=== PATIENT | female | born 1955 | race Caucasian/White ===

== ENCOUNTER 2021-12-15 07:17 | Inpatient (IN) | payer MEDICARE ==
[~2021-12-15] VITALS: Ht 165.1 cm; Wt 81.6 kg
[2021-12-15] VITALS (12 sets, daily range): BP systolic 67–112; BP diastolic 35–57
[~2021-12-15 07:17] MED LIST: HYDROmorphone 2 MG/ML INJ. IVP PRN; IV RINGERS,LACTATED 1000ML 1,000 ML IV SCH; PROCHLORPERAZINE 10 MG/2 ML VIAL. IVP PRN; fentaNYL PF VIAL 100 MCG/2 ML VIAL IVP PRN
[2021-12-15] MEDS ORDERED: cefOXitin SODIUM IV Push 1 GM VIAL. IVP PRN (07:30)
[2021-12-15] MEDS ORDERED: IBUP200T58 PO (07:49)
[2021-12-15] MEDS ORDERED: PANT40TA77 PO (07:49)
[2021-12-15] MEDS ORDERED: TAMO20TA PO (07:49)
[2021-12-15] MEDS ORDERED: cefOXitin SODIUM IV Push 2 GM VIAL. IVP ONE (08:00)
[2021-12-15] MEDS ORDERED: ePHEDrine PF IN SALINE 50 MG/10 ML SYRINGE. IV ONE (08:35)
[2021-12-15] MEDS ORDERED: DEXAMETHASONE SOD PHOS 4 MG/ML VIAL ONE (08:36)
[2021-12-15] MEDS ORDERED: PROPOFOL 10 MG/ML (20ML) VIAL. IV ONE (08:36)
[2021-12-15] MEDS ORDERED: SUCCINYLCHOLINE 200 MG/10 ML VIAL. ONE (08:36)
[2021-12-15] MEDS ORDERED: ONDANSETRON PF 4 MG/2 ML VIAL. ONE (08:36)
[2021-12-15] MEDS ORDERED: LIDOCAINE 2% PF 5 ML VIAL. ONE (08:36)
[2021-12-15] MEDS ORDERED: ROCURONIUM 50 MG/5 ML VIAL. ONE (08:37)
[2021-12-15] MEDS ORDERED: fentaNYL PF VIAL 100 MCG/2 ML VIAL ONE ×2 (08:38→11:32)
[2021-12-15] MEDS ORDERED: PHENYLEPHRINE in 0.9% NACL PF 1 MG/10 ML SYRINGE. IV ONE (08:39)
--- NOTE | 2021-12-15 09:39 | PDOC ---
SURGICAL PROGRESS NOTE DATE: 12/15/21 TIME: 09:37 Subjective Pre-Op Note 66 yo F with hx of diverticulitis, s/p resection and ileostomy She is currently doing well and denies c/o BE with intact anastomosis TO OR for ileostomy takedown. R/R/B/A d/w pt and pt's supportive family. Risks, including, but not limited to: bleeding, infection, damage to surrounding structures, risk of anesthesia, risk of anastomotic leak. They appear to understand, their questions are answered and they elect to proceed. Vital Signs Vital Signs Date Time Temp Pulse Resp B/P (MAP) Pulse Ox O2 Delivery O2 Flow Rate FiO2 12/15/21 07:52 97.9 73 20 111/53 98 Room Air 97.9 Justicifation of Admission Dx: Justifications for Admission: Justification of Admission Dx: Yes Chronic Renal Failure: Intravenous Infusions VIRGINIA BINGHAM MD Dec 15, 2021 09:39
[2021-12-15] MEDS ORDERED: BUPIVACAINE-EPI 0.5% 30 ML VIAL KIT. ONE (09:57)
[2021-12-15] MEDS ORDERED: BUPIVACAINE-EPI 0.5% 30 ML VIAL KIT. INJ ONE (09:58)
[2021-12-15] MEDS ORDERED: HYDROmorphone 2 MG/ML INJ. ONE (09:59)
[2021-12-15] MEDS ORDERED: SUGAMMADEX SODIUM 200 MG/2 ML VIAL. IVP ONE (10:30)
[2021-12-15] MEDS ORDERED: MORPHINE SULFATE 2 MG/ML INJ. ONE ×2 (11:33→12:01)
[2021-12-15] MEDS: fentaNYL PF VIAL 100 MCG/2 ML VIAL IVP PRN ×2 (11:36→11:51)
[2021-12-15] MEDS: MORPHINE SULFATE 2 MG/ML INJ. IVP PRN ×4 (11:37→12:16)
[2021-12-15] MEDS ORDERED: NALOXONE 0.4 MG/ML VIAL. IV PRN (12:30)
[2021-12-15] MEDS ORDERED: ONDANSETRON PF 4 MG/2 ML VIAL. IVP PRN (12:30)
[2021-12-15] MEDS: IV NORMAL SALINE 1000ML BAG 1,000 ML IV SCH (12:30)
[2021-12-15] MEDS ORDERED: HYDROmorphone 12mg/30ml PCA 30 ML IV PRN (12:30)
[2021-12-15] MEDS ORDERED: 0.9 % SODIUM CHLORIDE 10 ML DISP.SYRIN. IV PRN (12:30)
--- NOTE | 2021-12-15 12:30 | PDOC4 ---
OPERATIVE NOTE Date: Date: Dec 15, 2021 Pre-Op Diagnosis: Perforated diverticulitis Post-Op Diagnosis: same Procedure Performed: ileostomy takedown Surgeon: Rui Bingham Anesthesia Type: GETA plus local Blood Loss: 50 Specimans Obtained: none Findings: normal ostomy Complications: none Operative Note: After obtaining informed consent, patient was taken to OR, induced under GETA and prepped in the usual fashion. Ileostomy identified in RLQ and mucocutaneous junction divided with cautery. Subcutaneous tissues divided sharply. Ileostomy freed up to and below the level of fascia and fascia clear intraperitoneally for several centimeters. Terminal ileum viable and intact. Serosal tear, inherent to procedure, was repaired with 3 0 vicryl. Sided to side stapled anastomosis created with SARAY 75 and sealed with TA 60. Anastomosis reinforced with 3 0 vicryl. Anastomosis noted to be patent, under no tension and completely viable, without leakage. Bowel returned to abdominal cavity. Copious irrigation. No evidence of bleeding or other pathology. Peritoneum repaired with 0 vicryl. Anterior fascia repaired with 0 looped PDS. Skin repaired with 3 0 vicryl and 4 0 monocryl in pursestring fashion. Dressing placed. Patient tolerated procedure well and sent to PACU in stable condition. All counts correct. Wound class is 4. VIRGINIA BINGHAM MD Dec 15, 2021 12:30
[2021-12-15] MEDS: IV RINGERS,LACTATED 1000ML 1,000 ML IV SCH ×2 (12:55→21:10)
--- NOTE | 2021-12-15 14:27 | NUR ---
arrived from pacu. she is awake and sister at bedside. she has a claims investigator and reinstructed on use. dressing to abdomen is clean and dry. returned to bed. requested coke and given a diet lemon nikolski. ambulated to the bathroom; she voided
[2021-12-16 03:00] VITALS: BP 115/39
[2021-12-16 04:34] LABS: BASO % 0 % (0-3); EOS % 0 % (0-3); HEMATOCRIT 28.5 % (36.0-47.0); HEMOGLOBIN 9.5 g/dL (12.0-15.5); LYMPH # 1.1 x10^3/uL (1.0-4.8); LYMPH % 12 % (24-48); MEAN CORPUSCULAR HEMOGLOBIN 31 pg (25-35); MEAN CORPUSCULAR HGB CONC 33 g/dL (31-37); MEAN CORPUSCULAR VOLUME 92 fL (79-100); MONO # 0.7 x10^3/uL (0.0-1.1); MONO % 7 % (0-9); NEUT # 7.6 x10^3/uL (1.8-7.7); NEUT % 80 % (31-73); PLATELET COUNT 195 x10^3/uL (140-400); RED BLOOD COUNT 3.11 x10^6/uL (3.50-5.40); RED CELL DISTRIBUTION WIDTH 15.4 % (11.5-14.5); WHITE BLOOD COUNT 9.4 x10^3/uL (4.0-11.0)
[2021-12-16 04:47] LABS: CALCIUM 7.8 mg/dL (8.5-10.1); CREATININE 0.9 mg/dL (0.6-1.0); GFR 62.5
[2021-12-16] MEDS ORDERED: ENOXAPARIN 40 MG/0.4 ML SYRINGE. SQ SCH (06:00)
[2021-12-16 07:00] VITALS: BP 103/40
[2021-12-16] MEDS: IV RINGERS,LACTATED 1000ML 1,000 ML IV SCH ×2 (08:30→18:30)
[2021-12-16] MEDS: ENOXAPARIN 40 MG/0.4 ML SYRINGE. SQ SCH (08:41)
--- NOTE | 2021-12-16 09:12 | PDOC ---
SURGICAL PROGRESS NOTE DATE: 12/16/21 TIME: 09:11 Subjective pretty sore today no flatus no nausea Vital Signs Vital Signs Date Time Temp Pulse Resp B/P (MAP) Pulse Ox O2 Delivery O2 Flow Rate FiO2 12/16/21 07:52 Nasal Cannula 2.0 12/16/21 07:30 15 99 12/16/21 07:00 97.5 70 103/40 (61) 97.5 I&O Intake and Output 12/16/21 07:00 Intake Total 1400 ml Output Total 728 ml Balance 672 ml Intake Oral 300 ml IV Total 1100 ml Output Urine Total 678 ml Estimated Blood Loss 50 ml # Voids 1 General: Alert, Cooperative Abdomen: Soft, Other (dressing dry) Labs Laboratory Tests Test 12/16/21 03:20 White Blood Count 9.4 x10^3/uL (4.0-11.0) Red Blood Count 3.11 x10^6/uL (3.50-5.40) Hemoglobin 9.5 g/dL (12.0-15.5) Hematocrit 28.5 % (36.0-47.0) Mean Corpuscular Volume 92 fL (79-100) Mean Corpuscular Hemoglobin 31 pg (25-35) Mean Corpuscular Hemoglobin Concent 33 g/dL (31-37) Red Cell Distribution Width 15.4 % (11.5-14.5) Platelet Count 195 x10^3/uL (140-400) Neutrophils (%) (Auto) 80 % (31-73) Lymphocytes (%) (Auto) 12 % (24-48) Monocytes (%) (Auto) 7 % (0-9) Eosinophils (%) (Auto) 0 % (0-3) Basophils (%) (Auto) 0 % (0-3) Neutrophils # (Auto) 7.6 x10^3/uL (1.8-7.7) Lymphocytes # (Auto) 1.1 x10^3/uL (1.0-4.8) Monocytes # (Auto) 0.7 x10^3/uL (0.0-1.1) Eosinophils # (Auto) 0.0 x10^3/uL (0.0-0.7) Basophils # (Auto) 0.0 x10^3/uL (0.0-0.2) Sodium Level 139 mmol/L (136-145) Potassium Level 4.0 mmol/L (3.5-5.1) Chloride Level 107 mmol/L (98-107) Carbon Dioxide Level 26 mmol/L (21-32) Anion Gap 6 (6-14) Blood Urea Nitrogen 12 mg/dL (7-20) Creatinine 0.9 mg/dL (0.6-1.0) Estimated GFR (Cockcroft-Gault) 62.5 Glucose Level 108 mg/dL (70-99) Calcium Level 7.8 mg/dL (8.5-10.1) Laboratory Tests Test 12/16/21 03:20 White Blood Count 9.4 x10^3/uL (4.0-11.0) Red Blood Count 3.11 x10^6/uL (3.50-5.40) Hemoglobin 9.5 g/dL (12.0-15.5) Hematocrit 28.5 % (36.0-47.0) Mean Corpuscular Volume 92 fL (79-100) Mean Corpuscular Hemoglobin 31 pg (25-35) Mean Corpuscular Hemoglobin Concent 33 g/dL (31-37) Red Cell Distribution Width 15.4 % (11.5-14.5) Platelet Count 195 x10^3/uL (140-400) Neutrophils (%) (Auto) 80 % (31-73) Lymphocytes (%) (Auto) 12 % (24-48) Monocytes (%) (Auto) 7 % (0-9) Eosinophils (%) (Auto) 0 % (0-3) Basophils (%) (Auto) 0 % (0-3) Neutrophils # (Auto) 7.6 x10^3/uL (1.8-7.7) Lymphocytes # (Auto) 1.1 x10^3/uL (1.0-4.8) Monocytes # (Auto) 0.7 x10^3/uL (0.0-1.1) Eosinophils # (Auto) 0.0 x10^3/uL (0.0-0.7) Basophils # (Auto) 0.0 x10^3/uL (0.0-0.2) Sodium Level 139 mmol/L (136-145) Potassium Level 4.0 mmol/L (3.5-5.1) Chloride Level 107 mmol/L (98-107) Carbon Dioxide Level 26 mmol/L (21-32) Anion Gap 6 (6-14) Blood Urea Nitrogen 12 mg/dL (7-20) Creatinine 0.9 mg/dL (0.6-1.0) Estimated GFR (Cockcroft-Gault) 62.5 Glucose Level 108 mg/dL (70-99) Calcium Level 7.8 mg/dL (8.5-10.1) Assessment/Plan s/p ileostomy takedown , await bowel function Justicifation of Admission Dx: Justifications for Admission: Justification of Admission Dx: Yes Chronic Renal Failure: Intravenous Infusions DANIEL MAYA APRN Dec 16, 2021 09:12
--- NOTE | 2021-12-16 10:46 | NUR ---
SW following. 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 Surgery following - pt had surgery on 12/15/21. No bowel sounds as of yet. SW will continue to follow.
[2021-12-16 11:00] VITALS: BP 106/36
[2021-12-16] MEDS: IV NORMAL SALINE 1000ML BAG 1,000 ML IV SCH (12:30)
[2021-12-16 15:00] VITALS: BP 110/48
--- NOTE | 2021-12-16 15:00 | NUR ---
states that she passed flatus and wants something else to eat. "They said I could have something else if i passed gas" will call and get diet advanced. states she is feeling better. sister gone. manager primary care continues.
[2021-12-16 19:15] VITALS: BP 114/46
[2021-12-16 22:54] VITALS: BP 115/46
[2021-12-17 03:02] VITALS: BP 113/53
[2021-12-17] MEDS: IV RINGERS,LACTATED 1000ML 1,000 ML IV SCH (04:30)
[2021-12-17 07:00] VITALS: BP 113/50
[2021-12-17] MEDS: IV NORMAL SALINE 1000ML BAG 1,000 ML IV SCH (07:32)
[2021-12-17] MEDS: ENOXAPARIN 40 MG/0.4 ML SYRINGE. SQ SCH (08:50)
--- NOTE | 2021-12-17 08:53 | PDOC ---
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 Vital Signs Vital Signs Date Time Temp Pulse Resp B/P (MAP) Pulse Ox O2 Delivery O2 Flow Rate FiO2 12/17/21 08:00 Room Air 12/17/21 07:00 98.5 80 16 113/50 (71) 92 98.5 12/16/21 20:00 2.0 I&O Intake and Output 12/17/21 07:00 Intake Total 240 ml Output Total 1250 ml Balance -1010 ml Intake Oral 240 ml Output Urine Total 1250 ml # Voids 1 General: Alert, Oriented X3 Abdomen: Soft, Other (dressing dry) Labs Laboratory Tests Test 12/16/21 03:20 White Blood Count 9.4 x10^3/uL (4.0-11.0) Red Blood Count 3.11 x10^6/uL (3.50-5.40) Hemoglobin 9.5 g/dL (12.0-15.5) Hematocrit 28.5 % (36.0-47.0) Mean Corpuscular Volume 92 fL (79-100) Mean Corpuscular Hemoglobin 31 pg (25-35) Mean Corpuscular Hemoglobin Concent 33 g/dL (31-37) Red Cell Distribution Width 15.4 % (11.5-14.5) Platelet Count 195 x10^3/uL (140-400) Neutrophils (%) (Auto) 80 % (31-73) Lymphocytes (%) (Auto) 12 % (24-48) Monocytes (%) (Auto) 7 % (0-9) Eosinophils (%) (Auto) 0 % (0-3) Basophils (%) (Auto) 0 % (0-3) Neutrophils # (Auto) 7.6 x10^3/uL (1.8-7.7) Lymphocytes # (Auto) 1.1 x10^3/uL (1.0-4.8) Monocytes # (Auto) 0.7 x10^3/uL (0.0-1.1) Eosinophils # (Auto) 0.0 x10^3/uL (0.0-0.7) Basophils # (Auto) 0.0 x10^3/uL (0.0-0.2) Sodium Level 139 mmol/L (136-145) Potassium Level 4.0 mmol/L (3.5-5.1) Chloride Level 107 mmol/L (98-107) Carbon Dioxide Level 26 mmol/L (21-32) Anion Gap 6 (6-14) Blood Urea Nitrogen 12 mg/dL (7-20) Creatinine 0.9 mg/dL (0.6-1.0) Estimated GFR (Cockcroft-Gault) 62.5 Glucose Level 108 mg/dL (70-99) Calcium Level 7.8 mg/dL (8.5-10.1) Assessment/Plan 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
[2021-12-17] MEDS ORDERED: oxyCODONE/APAP 5/325 1 TAB TABLET PO PRN (09:00)
[2021-12-17] MEDS ORDERED: HYDROmorphone 2 MG/ML INJ. IVP PRN (09:00)
[2021-12-17] MEDS: oxyCODONE/APAP 5/325 1 TAB TABLET PO PRN ×3 (10:53→22:39)
[2021-12-17 11:00] VITALS: BP 117/49
[2021-12-17 15:07] VITALS: BP 134/59
[2021-12-17 19:00] VITALS: BP 126/54
[2021-12-17 23:00] VITALS: BP 109/51
[2021-12-18 03:00] VITALS: BP 108/50
[2021-12-18] MEDS: oxyCODONE/APAP 5/325 1 TAB TABLET PO PRN ×2 (06:24→13:51)
[2021-12-18 07:00] VITALS: BP 118/49
[2021-12-18] MEDS: ENOXAPARIN 40 MG/0.4 ML SYRINGE. SQ SCH (08:55)
--- NOTE | 2021-12-18 10:31 | PDOC ---
PROGRESS NOTES Date of Service DATE: 12/18/21 TIME: 10:30 Subjective Subjective feels well, passing gas, no stool Objective Objective Vital Signs Date Time Temp Pulse Resp B/P (MAP) Pulse Ox O2 Delivery O2 Flow Rate FiO2 12/18/21 08:00 Room Air 12/18/21 07:00 98.6 65 16 118/49 (72) 94 98.6 12/16/21 20:00 2.0 Intake and Output 12/18/21 07:00 Intake Total 440 ml Balance 440 ml Intake Oral 440 ml # Voids 1 Physical Exam Abdomen: Soft, No tenderness Plan Plan of Care Await bowel function, hoping for discharge tomorrow Comment Review of Relevant I have reviewed the following items karime (where applicable) has been applied. Medications Current Medications Fentanyl Citrate (Fentanyl 2ml Vial) 25 mcg PRN Q5MIN PRN IVP MILD PAIN 1-3; Start 12/15/21 at 06:00; Stop 12/16/21 at 05:59; Status DC Fentanyl Citrate (Fentanyl 2ml Vial) 50 mcg PRN Q5MIN PRN IVP MODERATE PAIN 4-6 Last administered on 12/15/21at 11:51; Start 12/15/21 at 06:00; Stop 12/16/21 at 05:59; Status DC Morphine Sulfate (Morphine Sulfate) 1 mg PRN Q10MIN PRN IVP SEVERE PAIN 7-10 Last administered on 12/15/21at 12:16; Start 12/15/21 at 06:00; Stop 12/16/21 at 05:59; Status DC Ringer's Solution 1,000 ml @ 30 mls/hr Q24H IV Last administered on 12/15/21at 08:03; Start 12/15/21 at 06:00; Stop 12/15/21 at 17:59; Status DC Hydromorphone HCl (Dilaudid) 0.5 mg PRN Q10MIN PRN IVP SEVERE PAIN 7-10, 2nd CHOICE; Start 12/15/21 at 06:00; Stop 12/16/21 at 05:59; Status DC Prochlorperazine Edisylate (Compazine) 5 mg PACU PRN PRN IVP NAUSEA, MRX1; Start 12/15/21 at 06:00; Stop 12/16/21 at 05:59; Status DC Cefoxitin Sodium (Mefoxin) 2 gm 1X PREOP PRN IVP PRIOR TO PROCEDURE; Start 12/15/21 at 07:30; Stop 12/15/21 at 07:47; Status DC Cefoxitin Sodium (Mefoxin) 2 gm 1X ONCE IVP Last administered on 12/15/21at 09:42; Start 12/15/21 at 08:00; Stop 12/15/21 at 08:01; Status DC Sugammadex Sodium (Bridion) 200 mg 1X ONCE IVP ; Start 12/15/21 at 10:30; Stop 12/15/21 at 10:40; Status DC Bupivacaine HCl/ Epinephrine Bitart (Sensorcain-Epi 0.5% Kit) 30 ml STK-MED ONCE INJ Last administered on 12/15/21at 09:58; Start 12/15/21 at 09:58; Stop 12/15/21 at 10:40; Status DC Enoxaparin Sodium (Lovenox 40mg Syringe) 40 mg Q24H SQ ; Start 12/16/21 at 06:00; Stop 12/16/21 at 06:07; Status DC Sodium Chloride (Normal Saline Flush) 3 ml QSHIFT PRN IV AFTER MEDS AND BLOOD DRAWS; Start 12/15/21 at 12:30 Ringer's Solution 1,000 ml @ 100 mls/hr Q10H IV Last administered on 12/16/21at 08:30; Start 12/15/21 at 12:30; Stop 12/17/21 at 08:52; Status DC Naloxone HCl (Narcan) 0.4 mg PRN Q2MIN PRN IV SEE INSTRUCTIONS; Start 12/15/21 at 12:30 Sodium Chloride 1,000 ml @ 25 mls/hr Q24H IV ; Start 12/15/21 at 12:30 Hydromorphone HCl 30 ml @ 0 mls/hr CONT PRN PRN IV PER PROTOCOL Last administered on 12/15/21at 13:24; Start 12/15/21 at 12:30; Stop 12/17/21 at 08:52; Status DC Ondansetron HCl (Zofran) 4 mg PRN Q6HRS PRN IVP NAUESA, 1ST CHOICE; Start 12/15/21 at 12:30 Enoxaparin Sodium (Lovenox 40mg Syringe) 40 mg Q24H SQ Last administered on 12/18/21at 08:55; Start 12/16/21 at 09:00 Oxycodone/ Acetaminophen (Percocet 5/325) 1 tab PRN Q4HRS PRN PO MILD-MODERATE PAIN Last administered on 12/18/21at 06:24; Start 12/17/21 at 09:00 Oxycodone/ Acetaminophen (Percocet 5/325) 2 tab PRN Q6HRS PRN PO SEVERE PAIN; Start 12/17/21 at 09:00 Hydromorphone HCl (Dilaudid) 0.2 mg PRN Q4HRS PRN IVP PAIN; Start 12/17/21 at 09:00 Active Scripts Active Reported Pantoprazole Sodium (Pantoprazole Sodium) 40 Mg Tablet.dr 40 Mg PO DAILYAC Tamoxifen Citrate 20 Mg Tablet 20 Mg PO DAILY Advil (Ibuprofen) 200 Mg Tablet 200 Mg PO QIDPRN PRN Vitals/I & O Vital Sign - Last 24 Hours 12/17/21 12/17/21 12/17/21 12/17/21 11:00 15:07 19:00 19:58 Temp 98.8 98.1 99.6 98.8 98.1 99.6 Pulse 80 83 80 Resp 16 16 18 B/P (MAP) 117/49 (71) 134/59 (84) 126/54 (78) Pulse Ox 97 95 95 O2 Delivery Room Air Room Air 12/17/21 12/17/21 12/17/21 12/18/21 22:39 23:00 23:09 03:00 Temp 98.5 98.7 98.5 98.7 Pulse 83 69 Resp 18 16 B/P (MAP) 109/51 (70) 108/50 (69) Pulse Ox 95 94 95 O2 Delivery Room Air Room Air 12/18/21 12/18/21 12/18/21 12/18/21 06:24 06:54 07:00 08:00 Temp 98.6 98.6 Pulse 65 Resp 18 16 B/P (MAP) 118/49 (72) Pulse Ox 95 95 94 O2 Delivery Room Air Room Air Room Air Room Air Intake and Output 12/17/21 12/17/21 12/18/21 15:00 23:00 07:00 Intake Total 200 ml 240 ml Balance 200 ml 240 ml Justifications for Admission Other Justification SAFIA RICHARDSON MD Dec 18, 2021 10:31
[2021-12-18 11:00] VITALS: BP 104/44
[2021-12-18] MEDS: IV NORMAL SALINE 1000ML BAG 1,000 ML IV SCH (11:07)
[2021-12-18 15:00] VITALS: BP 106/43
[2021-12-18 19:52] VITALS: BP 110/53
[2021-12-18 23:24] VITALS: BP 113/50
[2021-12-19] MEDS: oxyCODONE/APAP 5/325 1 TAB TABLET PO PRN (02:48)
[2021-12-19 03:45] VITALS: BP_SYST 120; BP_DIAS 57; BP_DIAS 64
[2021-12-19 07:00] VITALS: BP 92/50
[2021-12-19] MEDS: ENOXAPARIN 40 MG/0.4 ML SYRINGE. SQ SCH (07:08)
--- NOTE | 2021-12-19 09:03 | PDOC ---
PROGRESS NOTES Date of Service DATE: 12/19/21 TIME: 09:02 Subjective Subjective doing well, ready to go home Objective Objective Vital Signs Date Time Temp Pulse Resp B/P (MAP) Pulse Ox O2 Delivery O2 Flow Rate FiO2 12/19/21 07:00 97.9 76 16 92/50 (64) 94 Room Air 97.9 12/16/21 20:00 2.0 Intake and Output 12/19/21 07:00 Intake Total 100 ml Balance 100 ml Intake Oral 100 ml # Voids 4 Physical Exam Abdomen: Soft Plan Plan of Care Discharge Comment Review of Relevant I have reviewed the following items karime (where applicable) has been applied. Medications Current Medications Fentanyl Citrate (Fentanyl 2ml Vial) 25 mcg PRN Q5MIN PRN IVP MILD PAIN 1-3; Start 12/15/21 at 06:00; Stop 12/16/21 at 05:59; Status DC Fentanyl Citrate (Fentanyl 2ml Vial) 50 mcg PRN Q5MIN PRN IVP MODERATE PAIN 4-6 Last administered on 12/15/21at 11:51; Start 12/15/21 at 06:00; Stop 12/16/21 at 05:59; Status DC Morphine Sulfate (Morphine Sulfate) 1 mg PRN Q10MIN PRN IVP SEVERE PAIN 7-10 Last administered on 12/15/21at 12:16; Start 12/15/21 at 06:00; Stop 12/16/21 at 05:59; Status DC Ringer's Solution 1,000 ml @ 30 mls/hr Q24H IV Last administered on 12/15/21at 08:03; Start 12/15/21 at 06:00; Stop 12/15/21 at 17:59; Status DC Hydromorphone HCl (Dilaudid) 0.5 mg PRN Q10MIN PRN IVP SEVERE PAIN 7-10, 2nd CHOICE; Start 12/15/21 at 06:00; Stop 12/16/21 at 05:59; Status DC Prochlorperazine Edisylate (Compazine) 5 mg PACU PRN PRN IVP NAUSEA, MRX1; Start 12/15/21 at 06:00; Stop 12/16/21 at 05:59; Status DC Cefoxitin Sodium (Mefoxin) 2 gm 1X PREOP PRN IVP PRIOR TO PROCEDURE; Start 11/27 08/18 at 07:30; Stop 12/15/21 at 07:47; Status DC Cefoxitin Sodium (Mefoxin) 2 gm 1X ONCE IVP Last administered on 12/15/21at 0 9:42; Start 12/15/21 at 08:00; Stop 12/15/21 at 08:01; Status DC Sugammadex Sodium (Bridion) 200 mg 1X ONCE IVP ; Start 12/15/21 at 10:30; Stop 12/15/21 at 10:40; Status DC Bupivacaine HCl/ Epinephrine Bitart (Sensorcain-Epi 0.5% Kit) 30 ml STK-MED ONCE INJ Last administered on 12/15/21at 09:58; Start 12/15/21 at 09:58; Stop 12/15/21 at 10:40; Status DC Enoxaparin Sodium (Lovenox 40mg Syringe) 40 mg Q24H SQ ; Start 12/16/21 at 06:00; Stop 12/16/21 at 06:07; Status DC Sodium Chloride (Normal Saline Flush) 3 ml QSHIFT PRN IV AFTER MEDS AND BLOOD DRAWS; Start 12/15/21 at 12:30 Ringer's Solution 1,000 ml @ 100 mls/hr Q10H IV Last administered on 12/16/21at 08:30; Start 12/15/21 at 12:30; Stop 12/17/21 at 08:52; Status DC Naloxone HCl (Narcan) 0.4 mg PRN Q2MIN PRN IV SEE INSTRUCTIONS; Start 12/15/21 at 12:30 Sodium Chloride 1,000 ml @ 25 mls/hr Q24H IV ; Start 12/15/21 at 12:30 Hydromorphone HCl 30 ml @ 0 mls/hr CONT PRN PRN IV PER PROTOCOL Last administered on 12/15/21at 13:24; Start 12/15/21 at 12:30; Stop 12/17/21 at 08:52; Status DC Ondansetron HCl (Zofran) 4 mg PRN Q6HRS PRN IVP NAUESA, 1ST CHOICE; Start 12/15/21 at 12:30 Enoxaparin Sodium (Lovenox 40mg Syringe) 40 mg Q24H SQ Last administered on 12/18/21at 08:55; Start 12/16/21 at 09:00 Oxycodone/ Acetaminophen (Percocet 5/325) 1 tab PRN Q4HRS PRN PO MILD-MODERATE PAIN Last administered on 12/19/21at 02:48; Start 12/17/21 at 09:00 Oxycodone/ Acetaminophen (Percocet 5/325) 2 tab PRN Q6HRS PRN PO SEVERE PAIN; Start 12/17/21 at 09:00 Hydromorphone HCl (Dilaudid) 0.2 mg PRN Q4HRS PRN IVP PAIN; Start 12/17/21 at 09:00 Active Scripts Active Reported Pantoprazole Sodium (Pantoprazole Sodium) 40 Mg Tablet.dr 40 Mg PO DAILYAC Tamoxifen Citrate 20 Mg Tablet 20 Mg PO DAILY Advil (Ibuprofen) 200 Mg Tablet 200 Mg PO QIDPRN PRN Vitals/I & O Vital Sign - Last 24 Hours 12/18/21 12/18/21 12/18/21 12/18/21 11:00 13:51 14:30 15:00 Temp 97.9 97.9 97.9 97.9 Pulse 64 81 Resp 16 16 B/P (MAP) 104/44 (64) 106/43 (64) Pulse Ox 95 95 O2 Delivery Room Air Room Air Room Air Room Air 12/18/21 12/18/21 12/18/21 12/19/21 19:40 19:52 23:24 03:45 Temp 98.3 98.0 98.3 98.0 Pulse 80 81 79 Resp 18 18 16 B/P (MAP) 110/53 (72) 113/50 (71) 120/64 (82) Pulse Ox 95 95 94 O2 Delivery Room Air Room Air Room Air Room Air 12/19/21 07:00 Temp 97.9 97.9 Pulse 76 Resp 16 B/P (MAP) 92/50 (64) Pulse Ox 94 O2 Delivery Room Air Intake and Output 12/18/21 12/18/21 12/19/21 15:00 23:00 07:00 Intake Total 100 ml Balance 100 ml Justifications for Admission Other Justification SAFIA RICHARDSON MD Dec 19, 2021 09:03
[2021-12-19] MEDS ORDERED: HYDR-2761 PO (09:05)
--- NOTE | 2021-12-19 09:06 | DISCH ---
DISCHARGE INSTRUCTIONS Condition on Discharge Condition on Discharge: Stable Activity After Discharge Activity Instructions for Disc: Other, see below (no lifting over 20 lbs) Diet after Discharge Diet after Discharge: Regular Follow-Up Follow up with: Dr Gama in 2 weeks, call for appointment [phone] SAFIA RICHARDSON MD Dec 19, 2021 09:06
--- NOTE | 2021-12-19 09:07 | PDOC3 ---
Discharge Summary Visit Information Date of Admission: Dec 15, 2021 Date of Discharge: Dec 19, 2021 Brief Hospital Course Allergies Allergies Coded Allergies Type Severity Reaction Last Updated Verified Penicillins Allergy Intermediate Unknown 12/15/21 Yes Vital Signs Vital Signs Date Time Temp Pulse Resp B/P (MAP) Pulse Ox O2 Delivery O2 Flow Rate FiO2 12/19/21 07:00 97.9 76 16 92/50 (64) 94 Room Air 97.9 Brief Hospital Course Ms. Arellano is a 66 old female with a prior history of sigmoid colon resection and loop ileostomy due to perforated diverticulitis. She has recovered well and presents for ileostomy takedown. She underwent ileostomy takedown on December 15, 2021. Her hospital course was unremarkable and she was discharged on December 19, 2021. Discharge Information Scheduled Pantoprazole Sodium (Pantoprazole Sodium ) 40 Mg Tablet.dr, 40 MG PO DAILYAC for GERD, (Reported) Entered as Reported by: CHANCE DELUCA on 12/15/21748 Last Taken: Unknown Dose on 12/15/21529 Last Action: New Order on 12/15/21748 by CHANCE DELUCA Tamoxifen Citrate (Tamoxifen Citrate) 20 Mg Tablet, 20 MG PO DAILY for na, (Reported) Entered as Reported by: CHANCE DELUCA on 12/15/21748 Last Taken: Unknown Dose on 12/15/21529 Last Action: New Order on 12/15/21748 by CHANCE DELUCA Scheduled PRN Hydrocodone Bit/Acetaminophen (Hydrocodone-Apap 5-325 ) 1 Tab Tablet, 1 TAB PO PRN Q6HRS PRN for PAIN for 5 Days, #20 Ref 0 Prescribed by: SAFIA RICHARDSON on 12/19/21 09 Ibuprofen (Advil) 200 Mg Tablet, 200 MG PO QIDPRN PRN for PAIN, (Reported) Entered as Reported by: CHANCE DELUCA on 12/15/21748 Last Action: New Order on 12/15/21748 by CHANCE DELUCA Justicifation of Admission Dx: Justifications for Admission: Justification of Admission Dx: Yes Chronic Renal Failure: Intravenous Infusions SAFIA RICHARDSON MD Dec 19, 2021 09:07
--- NOTE | 2021-12-19 11:16 | NUR ---
Pt provided with discharge instructions and walked by staff member to vehicle
== END 2021-12-19 11:27 | disposition home or self-care (01) | DRG 331 ==
LOC: OPSVCIP 07:17 → 4 NORTH 13:52
PROVIDERS: ADMIT Surgery; ATTEND Surgery
PROC: 0DBB0ZZ Excision of Ileum, Open Approach (ICD-10-PCS; principal; 2021-12-15 09:00)
DX: Z43.2 Encounter for attention to ileostomy (principal); K21.9 Gastro-esophageal reflux disease without esophagitis; N18.9 Chronic kidney disease, unspecified; Z88.0 Allergy status to penicillin
CPT/HCPCS: 36415; 80048; 85025; A4213; A4314; A4930; A6402; J0330; J0694; J1100; J1170; J1650; J2270; J2370; J2405; J2704; J3010; J3490; J7120; G0378